=== PATIENT | female | born 1950 | race Caucasian/White ===

== ENCOUNTER → 2017-06-21 12:10 | Outpatient (CLI) | payer MEDICARE, SELFPAY ==
[2017-06-21 14:44] LABS: AST(SGOT) 26 U/L (15-37); Alanine Aminotransfer ALT/SGPT 27 U/L (13-56); Albumin, Serum 3.9 g/dL (3.2-5.0); Alkaline Phosphatase 65 U/L (45-117); Cholesterol 181 mg/dL (200); Globulin 2.7 g/dL (2.2-4.2); Glucose 92 mg/dL (74-106); High Density Lipoprotein 83 mg/dL; Protein, Total 6.6 g/dL (6.4-8.2); Thyroid Stim Hormone (TSH) 0.99 uIU/mL (0.358-3.74); Triglycerides 84 mg/dL; Very Low Density Lipoprotein 17 mg/dL (5-40)
== END ==
PROVIDERS: Family Provider Family Medicine; PCP Family Medicine; Visit Provider Family Medicine
DX: E03.9 Hypothyroidism, unspecified (principal); E78.5 Hyperlipidemia, unspecified
CPT/HCPCS: 36415; 80061; 80076; 82947; 84443

== ENCOUNTER → 2017-11-25 11:23 | Outpatient (CLI) | payer MEDICARE, SELFPAY ==
[2017-11-25 12:38] LABS: Vitamin B12 1343 pg/mL (211-911); Vitamin D,25 Hydroxy 26.5 ng/mL (29.95-100.01)
[2017-11-25 12:51] LABS: Free T3 2.1 pg/mL (2.18-3.98); T4 Free Direct 1.34 ng/dL (0.76-1.46); Thyroid Stim Hormone (TSH) 1.92 uIU/mL (0.358-3.74)
[2017-11-26 09:49] LABS: Cancer Antigen 125 17.5 U/mL (0.0-38.1)
== END ==
PROVIDERS: Visit Provider Obstetrics & Gynecology
DX: E03.9 Hypothyroidism, unspecified (principal)
CPT/HCPCS: 36415; 82306; 82607; 84439; 84443; 84481; 86304

== ENCOUNTER → 2018-01-19 17:34 | Outpatient (CLI) | payer MEDICARE, SELFPAY ==
--- NOTE | 2018-01-17 | EMB_PTH ---
PATIENT: CHRISTY GASPAR LOC: [facility] U#:[id number] AGE/SX: 74/F ROOM: RE01/19/[address]: Dr. Radha Wiley MD : 1950 BED: DIS: SPEC #: [id number] RECD: 01/17/18 16:43 STATUS: SILVANA NORA #: [id number] CHAD: 01/17/18 00:[address]: Radha Ward DEPT: SURGICAL PATHOLOGY RECD BY: Joseph Freitas ENTERED: 01/20/18 14:41 SP TYPE: ENDOM BX/C ABHAY DR: Dr. 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 Negative for hyperplasia or malignancy. SJ:vamshi 01/21/18 COMMENT Clinical correlation and appropriate followup are necessary. MICROSCOPIC DESCRIPTION Slides are reviewed. GROSS DESCRIPTION Received is one container labeled with the patient name and designated EM biopsy. The specimen consists of multiple fragments of lowry mucoid tissue that in aggregate measure 3 x 2.5 x 0.3 cm. The specimen is totally submitted in one cassette. / SJ:vamshi 01/20/18 TC:5 CPT: 72797
== END ==
PROVIDERS: Family Provider Family Medicine; PCP Family Medicine; Referring Provider Obstetrics & Gynecology; Visit Provider Obstetrics & Gynecology
DX: Z80.41 Family history of malignant neoplasm of ovary (principal)
CPT/HCPCS: 88305

== ENCOUNTER → 2018-06-11 11:59 | Outpatient (CLI) | payer MEDICARE, SELFPAY | PROVIDERS: Family Provider Family Medicine; PCP Family Medicine; Referring Provider Family Medicine; Visit Provider Family Medicine | DX: R19.7 Diarrhea, unspecified (principal) | CPT/HCPCS: 87493; 87506 ==

== ENCOUNTER → 2019-03-25 10:42 | Outpatient (CLI) | payer MEDICARE, SELFPAY ==
[2019-03-25 13:02] LABS: AST(SGOT) 22 U/L (15-37); Alanine Aminotransfer ALT/SGPT 23 U/L (13-56); Albumin, Serum 3.4 g/dL (3.2-5.0); Alkaline Phosphatase 75 U/L (45-117); Bilirubin, Direct 0.14 mg/dL (0.00-0.30); Cholesterol 184 mg/dL (200); Free T3 2.3 pg/mL (2.18-3.98); Globulin 3.1 g/dL (2.2-4.2); High Density Lipoprotein 76 mg/dL; Protein, Total 6.5 g/dL (6.4-8.2); T4 Total, Thyroxin 11.2 ug/dL (4.8-13.9); Thyroid Stim Hormone (TSH) 0.92 uIU/mL (0.358-3.74); Triglycerides 158 mg/dL; Very Low Density Lipoprotein 32 mg/dL (5-40)
== END ==
PROVIDERS: Family Provider Family Medicine; PCP Family Medicine; Referring Provider Family Medicine; Visit Provider Family Medicine
DX: E03.9 Hypothyroidism, unspecified (principal); E78.5 Hyperlipidemia, unspecified
CPT/HCPCS: 36415; 80061; 80076; 84436; 84443; 84481

== ENCOUNTER → 2019-09-23 11:05 | Outpatient (CLI) | payer MEDICARE, SELFPAY ==
[2019-09-23 13:34] LABS: BUN 16 mg/dL (7-18); Creatinine, Serum 0.64 mg/dL (0.55-1.02); EST Glomerular Filtration Rate 97 mL/min (>60); Glucose 95 mg/dL (74-106)
[2019-09-23 13:35] LABS: ALB/GLOB Ratio 1.2 RATIO (0.9-2.4); AST(SGOT) 24 U/L (15-37); Alanine Aminotransfer ALT/SGPT 27 U/L (13-56); Albumin, Serum 3.9 g/dL (3.2-5.0); Alkaline Phosphatase 72 U/L (45-117); Anion Gap 7 (5-15); BUN/Creat Ratio 24.9 RATIO (10-20); Calcium,Total 8.6 mg/dL (8.5-10.1); Chloride 103 mmol/L (98-107); Cholesterol 223 mg/dL (200); Est Glom Filt Rate - Afr Amer 118 mL/min (>60); Free T3 2.5 pg/mL (2.18-3.98); Globulin 3.2 g/dL (2.2-4.2); High Density Lipoprotein 93 mg/dL; Potassium 4.2 mmol/L (3.5-5.1); Protein, Total 7.1 g/dL (6.4-8.2); Sodium Level 138 mmol/L (136-145); T4 Total, Thyroxin 9.8 ug/dL (4.8-13.9); Thyroid Stim Hormone (TSH) 2.13 uIU/mL (0.358-3.74); Triglycerides 103 mg/dL; Very Low Density Lipoprotein 21 mg/dL (5-40)
== END ==
PROVIDERS: PCP Family Medicine; Visit Provider Family Medicine
DX: E78.5 Hyperlipidemia, unspecified (principal); E03.9 Hypothyroidism, unspecified
CPT/HCPCS: 36415; 80053; 80061; 84436; 84443; 84481

== ENCOUNTER → 2020-03-23 11:28 | Outpatient (CLI) | payer MEDICARE, SELFPAY ==
[2020-03-23 15:05] LABS: ALB/GLOB Ratio 1.2 RATIO (0.9-2.4); AST(SGOT) 30 U/L (15-37); Alanine Aminotransfer ALT/SGPT 35 U/L (13-56); Albumin, Serum 3.8 g/dL (3.2-5.0); Alkaline Phosphatase 77 U/L (45-117); Anion Gap 5 (5-15); BUN 17 mg/dL (7-18); Calcium,Total 8.6 mg/dL (8.5-10.1); Chloride 104 mmol/L (98-107); Cholesterol 195 mg/dL (200); Creatinine, Serum 0.74 mg/dL (0.55-1.02); EST Glomerular Filtration Rate 83 mL/min (>60); Est Glom Filt Rate - Afr Amer 100 mL/min (>60); Free T3 2.3 pg/mL (2.18-3.98); Globulin 3.1 g/dL (2.2-4.2); Glucose 76 mg/dL (74-106); High Density Lipoprotein 86 mg/dL; Protein, Total 6.9 g/dL (6.4-8.2); Sodium Level 138 mmol/L (136-145); T4 Total, Thyroxin 8.1 ug/dL (4.8-13.9); Thyroid Stim Hormone (TSH) 2.18 uIU/mL (0.358-3.74); Triglycerides 75 mg/dL; Very Low Density Lipoprotein 15 mg/dL (5-40)
== END ==
PROVIDERS: PCP Family Medicine; Referring Provider Family Medicine; Visit Provider Family Medicine
DX: E78.5 Hyperlipidemia, unspecified (principal); E03.9 Hypothyroidism, unspecified
CPT/HCPCS: 36415; 80053; 80061; 84436; 84443; 84481

== ENCOUNTER → 2020-10-28 11:12 | Outpatient (CLI) | payer MEDICARE, SELFPAY ==
[2020-10-28 12:55] LABS: Anion Gap 7 (5-15); BUN 16 mg/dL (7-18); BUN/Creat Ratio 30.2 RATIO (10-20); Calcium,Total 8.6 mg/dL (8.5-10.1); Chloride 99 mmol/L (98-107); Cholesterol 196 mg/dL (200); Creatinine, Serum 0.53 mg/dL (0.55-1.02); EST Glomerular Filtration Rate 121 mL/min (>60); Est Glom Filt Rate - Afr Amer 147 mL/min (>60); Free T3 2.2 pg/mL (2.18-3.98); Glucose 90 mg/dL (74-106); High Density Lipoprotein 93 mg/dL; Potassium 3.8 mmol/L (3.5-5.1); Sodium Level 135 mmol/L (136-145); T4 Free Direct 1.07 ng/dL (0.76-1.46); Thyroid Stim Hormone (TSH) 2.14 uIU/mL (0.358-3.74); Triglycerides 71 mg/dL; Very Low Density Lipoprotein 14 mg/dL (5-40)
== END ==
PROVIDERS: PCP Family Medicine; Visit Provider Family Medicine
DX: E03.9 Hypothyroidism, unspecified (principal); E78.5 Hyperlipidemia, unspecified
CPT/HCPCS: 36415; 80048; 80061; 84439; 84443; 84481

== ENCOUNTER 2021-05-01 11:10 | Outpatient (CLI) | payer MEDICARE, SELFPAY ==
[2021-05-01 13:03] LABS: ALB/GLOB Ratio 1.2 RATIO (0.9-2.4); AST(SGOT) 28 U/L (15-37); Alanine Aminotransfer ALT/SGPT 31 U/L (13-56); Albumin, Serum 3.8 g/dL (3.2-5.0); Alkaline Phosphatase 68 U/L (45-117); Anion Gap 8 (5-15); BUN 17 mg/dL (7-18); BUN/Creat Ratio 32.3 RATIO (10-20); Calcium,Total 8.6 mg/dL (8.5-10.1); Chloride 99 mmol/L (98-107); Cholesterol 203 mg/dL (200); Creatinine, Serum 0.53 mg/dL (0.55-1.02); EST Glomerular Filtration Rate 122 mL/min (>60); Est Glom Filt Rate - Afr Amer 147 mL/min (>60); Globulin 3.1 g/dL (2.2-4.2); Glucose 91 mg/dL (74-106); High Density Lipoprotein 99 mg/dL; Potassium 4.1 mmol/L (3.5-5.1); Protein, Total 6.9 g/dL (6.4-8.2); Sodium Level 135 mmol/L (136-145); T4 Free Direct 1.07 ng/dL (0.76-1.46); Thyroid Stim Hormone (TSH) 1.84 uIU/mL (0.358-3.74); Triglycerides 87 mg/dL; Very Low Density Lipoprotein 17 mg/dL (5-40)
== END 2021-05-01 23:59 | disposition home or self-care (01) ==
LOC: MFPLAB 11:14
PROVIDERS: PCP Family Medicine; Visit Provider Family Medicine
DX: E78.5 Hyperlipidemia, unspecified (principal); E03.9 Hypothyroidism, unspecified
CPT/HCPCS: 36415; 80053; 80061; 84439; 84443; 84481

== ENCOUNTER → 2021-07-19 | Outpatient (CLI) | payer MEDICARE, SELFPAY ==
--- NOTE | 2021-07-19 14:00 | RAD_ITS ---
STUDY: X-RAY - PELVIS AND BILATERAL HIP REASON FOR EXAM: Female, 70 years old. PAIN IN LEFT HIP TECHNIQUE: XR Hips Bilateral with Pelvis when performed; 2 Views COMPARISON: None. FINDINGS: There is a non-specific bowel gas pattern. Normal visualized soft tissue structures. There are degenerative changes of the lumbar spine. Normal bilateral iliac wings, sacroiliac joints and visualized sacrum. Normal bilateral superior and inferior pubic rami. Normal pubic symphysis. Normal bilateral ischial tuberosities. Normal visualized femoral head. Normal acetabulum. Normal hip joint. RAD/Hips B/L min 2 views w/ Pelvis IMPRESSION: No acute findings. Electronically Signed: Darren Purdy MD at 18:32 EDT ,
[2021-07-19 14:02] LABS: Lyme Ab Screen Interpretation REF LAB
[2021-07-23 08:18] LABS: Lyme Scn Total Ab w/Rflx Negative (Negative)
== END | disposition home or self-care (01) ==
LOC: MTLAB 13:58
PROVIDERS: PCP Family Medicine; Referring Provider Family Medicine; Visit Provider Family Medicine
DX: M25.552 Pain in left hip (principal); W57.XXXA Bitten or stung by nonvenomous insect and other nonvenomous arthropods, initial encounter
CPT/HCPCS: 36415; 73521; 86618

== ENCOUNTER → 2022-08-17 | Outpatient (CLI) | payer MEDICARE, SELFPAY ==
--- NOTE | 2022-08-17 11:46 | RAD_ITS ---
STUDY: X-RAY - PELVIS AND LEFT HIP REASON FOR EXAM: Female, 71 years old. HIP PAIN TECHNIQUE: 3 views of the pelvis and hip. COMPARISON: 07/19/2021 FINDINGS: There is a non-specific bowel gas pattern. Normal visualized soft tissue structures. Normal bilateral iliac wings, sacroiliac joints and visualized sacrum. Normal bilateral superior and inferior pubic rami. Normal pubic symphysis. Normal bilateral ischial tuberosities. There are osteoarthritic changes of the femoral head with marginal osteophyte formation. Normal acetabulum. There is mild articular joint space narrowing of the hip. RAD/HIP, UNI W/ Pelvis 2-3 Views IMPRESSION: Mild arthrosis. Electronically Signed: Tony Connelly MD at 8:33 EDT ,
[2022-08-17 13:28] LABS: ALB/GLOB Ratio 1.2 RATIO (0.9-2.4); AST(SGOT) 28 U/L (15-37); Alanine Aminotransfer ALT/SGPT 30 U/L (13-56); Albumin, Serum 3.9 g/dL (3.2-5.0); Alkaline Phosphatase 70 U/L (45-117); Anion Gap 6 (5-15); BUN 16 mg/dL (7-18); BUN/Creat Ratio 25.2 RATIO (10-20); Calcium,Total 8.8 mg/dL (8.5-10.1); Chloride 101 mmol/L (98-107); Cholesterol 193 mg/dL (200); Creatinine, Serum 0.64 mg/dL (0.55-1.02); EST Glomerular Filtration Rate 98 mL/min (>60); Est Glom Filt Rate - Afr Amer 118 mL/min (>60); Free T3 2.2 pg/mL (2.18-3.98); Globulin 3.3 g/dL (2.2-4.2); Glucose 92 mg/dL (74-106); High Density Lipoprotein 99 mg/dL; Protein, Total 7.2 g/dL (6.4-8.2); Sodium Level 135 mmol/L (136-145); T4 Free Direct 1.02 ng/dL (0.76-1.46); Thyroid Stim Hormone (TSH) 2.41 uIU/mL (0.358-3.74); Triglycerides 88 mg/dL; Very Low Density Lipoprotein 18 mg/dL (5-40)
== END | disposition home or self-care (01) ==
PROVIDERS: PCP Family Medicine; Referring Provider Family Medicine; Visit Provider Family Medicine
DX: E78.5 Hyperlipidemia, unspecified (principal); E03.9 Hypothyroidism, unspecified
CPT/HCPCS: 36415; 73502; 80053; 80061; 84439; 84443; 84481

== ENCOUNTER → 2022-09-25 | Outpatient (CLI) | payer MEDICARE, SELFPAY ==
--- NOTE | 2022-09-25 14:36 | BI_ITS ---
MAMMOGRAPHY - BILATERAL DIAGNOSTIC REASON FOR EXAM: Female, 72 years old. Bilateral breast tenderness x5-6 months PERTINENT HISTORY: No family history, but no mammogram since 2011 TECHNIQUE: Digital examination. Mediolateral oblique (MLO) and craniocaudad (CC) views of both breasts were obtained, along with 3-D tomosynthesis. CAD: CAD was performed on this study. COMPARISON: 2011 FINDINGS: Breast Composition: There are scattered areas of fibroglandular density. There is an area in each breast noted by CAD on the 3-D tomograms which show poorly defined spiculated borders and particular in the right breast some evidence of retraction. Further evaluation of both of these areas with ultrasound is recommended. The upper outer quadrant of the right breast and inferior medial aspect of the left breast. BI/DIAG MAMM W/CAD, BILAT IMPRESSION: Further ultrasonographic evaluation recommended, as described above. Recall Side: Both Breasts ASSESSMENT CATEGORY: BIRADS Category 0: Incomplete. Need additional imaging evaluation. A letter regarding these results will be sent to the patient by the facility within 30 days. FOLLOW UP RECOMMENDATION: Ultrasound Recommended. (I) Approximately 10% of breast cancers are not detected by mammography. A normal mammogram should not delay biopsy of a clinically suspicious abnormality. Electronically Signed: Denny Liu MD at 15:14 EDT ,
--- NOTE | 2022-09-25 14:36 | US_ITS ---
STUDY: ULTRASOUND BREAST - RIGHT REASON FOR EXAM: Female, 72 years old. Abnormal mammogram TECHNIQUE: Axial and longitudinal images of the RIGHT breast were performed with a high resolution ultrasound transducer. # OF IMAGES: 55 COMPARISON: Mammogram from earlier today FINDINGS: RIGHT Breast: Focused upper outer quadrant ultrasound of the right breast was performed. On the 3-D tomograms, there was an abnormal area noted by CAD. Sonographic evaluation of this area, at 9:00, 3 to 4 cm from the nipple shows a poorly defined hypoechoic partially shadowing nodule. This corresponds to the abnormality noted on the mammogram and biopsy is recommended for further evaluation IMPRESSION: There is a suspicious poorly defined iso to hypoechoic nodule in the 9:00 position 3 to 4 cm from the nipple that needs further evaluation with biopsy. ASSESSMENT CATEGORY: BIRADS Category 4: Suspicious - Biopsy Should Be Considered. A letter regarding these results will be sent to the patient by the facility within 30 days. Electronically Signed: Denny Liu MD at 17:43 EDT , STUDY: ULTRASOUND BREAST - LEFT REASON FOR EXAM: Female, 72 years old. Abnormal mammogram TECHNIQUE: Axial and longitudinal images of the LEFT breast were performed with a high resolution ultrasound transducer. # OF IMAGES: 55 COMPARISON: Mammogram from earlier today FINDINGS: LEFT Breast: Focused ultrasound in the lower inner quadrant of the left breast shows only normal dense fibroglandular tissue. There is no suspicious shadowing solid lesion, architectural distortion, or clustered shadowing calcifications. US/Breast Limited Unilateral IMPRESSION: No suspicious sonographic findings. ASSESSMENT CATEGORY: BIRADS Category 2: Benign. A letter regarding these results will be sent to the patient by the facility within 30 days. Electronically Signed: Denny Liu MD at 17:44 EDT ,
== END | disposition home or self-care (01) ==
LOC: OPBI 14:34
PROVIDERS: PCP Family Medicine; Referring Provider Obstetrics & Gynecology; Visit Provider Obstetrics & Gynecology
DX: N64.4 Mastodynia (principal)
CPT/HCPCS: 76642; 77062; 77066; G0279

== ENCOUNTER → 2022-09-28 | Outpatient (CLI) | payer MEDICARE, SELFPAY ==
--- NOTE | 2022-09-28 | IMM_PTH ---
PATIENT: CHRISTY GASPAR LOC: [facility] U#:[id number] AGE/SX: 72/F ROOM: RE09/28/[address]: Dr. Alannah Doe MD : 1950 BED: DIS: 09/28/2022 SPEC #: [id number] RECD: 10/01/22 14:10 STATUS: SILVANA REQ #: [id number] CHAD: 09/28/22 00:[address]: Alannah Doe DEPT: IMMUNOHISTOCHEMISTRY RECD BY: Anne Olguin ENTERED: 10/01/22 14:12 SP TYPE: IMMUNO OTHR DR: Dr. Dg Calixto MD Tissues: Right breast, NOS Procedures: CALPONIN-1 (add) CK5-6 (add) CK8 (add) IBANEZ-2 (add) E-CAD (add) HER2 MANJEET (add) KI-67 (add) P53 (add) MS (add) IN SITU HYBRIDIZATION P40 (add) ER (initial) PHYSICIAN & INSTITUTION [address] [address] SPECIMEN INFORMATION: Tissue Source: Right breast Clinical Info: Right breast nodule Specimen Number: [id number] CPT code: 25559, 82193 x7, 22448 x3, 33240 x2 METHODOLOGY: Deparaffinized sections of prefer/formalin-fixed tissue or PAP/DQ stained slides are incubated with monoclonal/polyclonal antibodies/oligonucleotide probes. Localization is made via biotin free immunoperoxidase method. Appropriate controls are performed and reacted as expected. Results on target cell population are indicated in the following table: RESULTS: ANTIBODY / CLONE RESULT P53 (DO-7) negative, null pattern Ki-67 (30-9) positive CK8 (24vkbbW74) positive CK5-6 (D5 & 1684) negative Calponin-1 (OD989Z) negative P40 (BC28) negative E-Cad (ECH-6) positive IBANEZ-2 (SP21) positive MORPHOMETRIC ANALYSIS ER (clone 6F11) >95%, strong intensity MS (clone 16/1E2) 65%, weak to moderate intensity Her-2Neu (clone CB11) 1-2+ The prognostic test for HER2 is performed on formalin-fixed paraffin embedded tissue. A 3+ (positive) staining pattern is defined as intense, homogeneous, complete, circumferential membranous staining in >10% of contiguous tumor cells. A similar weak (2+) staining pattern is interpreted as equivocal. JUAN follow-up testing is recommended for all equivocal cases. Positivity/negativity for ER/MS is reported if > or < 1% of the tumor cells are immuno- reactive, respectively. The ASCO/CAP criteria is used for scoring. Reference: Journal of Clinical Oncology, 2013; 31:0242-1712 & 2010; 16:6785-0558. Duration of fixation: 81 Hrs; Sample Adequate: Yes. These assays have not been validated on decalcified tissues. Results should be interpreted with caution given the likelihood of false negativity on decalcified specimens. These tests were developed and their performance characteristics determined by [facility]. They may not have been cleared or approved by the U.S. Food and Drug Administration. The FDA has determined that such clearance or approval is not necessary. The above immunohistochemical/dualISH markers are ordered and reviewed by the Pathologist. INTERPRETATION: Right breast nodule, biopsy: Invasive ductal carcinoma. Positive for estrogen receptors (favorable prognostic indicator). Positive for progesterone receptors (favorable prognostic indicator). Equivocal for overexpression of WEK5ktv. AM:rom 10/02/2022 ADDENDUM ADDENDUM ADDENDUM ADDENDUM ADDENDUM ADDENDUM ADDENDUM ADDENDUM ADDENDUM ADDENDUM ADDENDUM ADDENDUM ADDENDUM ADDENDUM ADDENDUM ADDENDUM ADDENDUM ADDENDUM ADDENDUM ADDENDUM ADDENDUM ADDENDUM 10/05/2022 12:55 ADDENDUM 10/05/2022 12:55 ADDENDUM 10/05/2022 12:55 ADDENDUM 10/05/2022 12:55 ADDENDUM 10/05/2022 12:55 IN SITU HYBRIDIZATION (JUAN) FOR HER2 Interpretation: Not Amplified HER2 : CEP-17 Ratio: 1.13 Average HER2 Signal: 2.1 Average CEP-17 Signal: 1.85 Number of Tumor Cells Scanned: 50 Interpretative Information: The INFORM HER2 Dual JUAN DNA Probe Cocktail assay is performed on formalin-fixed paraffin embedded tissue and determines HER2 gene status by detecting HER2 copies via silver in situ hybridization (SISH) and Chromosome 17 copies via chromogenic red in situ hybridization on tumor cells. A minimum of 20 cells representing > 10% of contiguous and homogeneous invasive tumor cells were analyzed. HER2 gene status is classified as Non-amplified (HER2/Chr17 ratio < 2.0) or Amplified (HER2/Chr17 ratio greater than or equal to 2.0). If the resulting HER2/Chr17 ratio falls within 1.8 - 2.2 (Borderline), retesting by FISH is recommended. Reference: Carlin AC, Jose IRVIN, Darinel DG, et al: Recommendations for Human Epidermal Growth Factor Receptor 2 Testing in Breast Cancer: [place] Society of Clinical Oncology / College of [place] [employer] Clinical Practice Guideline Update. J Clin Oncol 31:6412-2596, 2013. AM:rom 10/05/2022
--- NOTE | 2022-09-28 09:50 | BRBX_PTH ---
PATIENT: CHRISTY GASPAR LOC: [facility] U#:[id number] AGE/SX: 72/F ROOM: RE09/28/[address]: Dr. Alannah Doe MD : 1950 BED: DIS: 09/28/2022 SPEC #: [id number] RECD: 09/28/22 11:20 STATUS: SILVANA NORA #: [id number] CHAD: 09/28/22 09:[address]: Alannah Doe DEPT: SURGICAL PATHOLOGY RECD BY: Heena Levy ENTERED: 09/28/22 11:33 SP TYPE: BREAST BX OTHR DR: Dr. Dg Calixto MD Tissues: Right breast, NOS Procedures: Surgery Specimen Level IV HEADER OPERATION: Biopsy of right breast nodule PRE-OP DIAGNOSIS: Right breast nodule TISSUE SUBMITTED: Right breast nodule tissue, 3-4 cm from nipple MICROSCOPIC DIAGNOSIS Right breast nodule, needle core biopsy: Invasive ductal carcinoma with the following characteristics: Nuclear grade - 1/3 Maximal length - 8 millimeters Other findings - atypical intraductal hyperplasia. Microcalcifications with carcinoma. See comment. AM:rom 10/01/2022 COMMENT Immunohistochemistry ([id number]) supports the above diagnosis. Case has been reviewed in consultation with Dr. Phipps who concurs with the above diagnosis. IDC:SJ MICROSCOPIC DESCRIPTION Slides are reviewed. GROSS DESCRIPTION Received in fixative is one container labeled with the patient's name and designated right breast nodule. The specimen consists of multiple irregular and elongated fragments of lowry tissue that in aggregate measure 1.0 x 0.3 x 0.1 cm. The specimen is totally submitted in one cassette. / AM:rom 09/28/2022 TC:0 CPT: 70038
== END | disposition home or self-care (01) ==
LOC: LABSPEC 11:25
PROVIDERS: PCP Family Medicine; Referring Provider Surgery; Visit Provider Surgery
DX: N63.10 Unspecified lump in the right breast, unspecified quadrant (principal)
CPT/HCPCS: 88305; 88341; 88342; 88368

== ENCOUNTER → 2022-10-02 | Outpatient (CLI) | payer MEDICARE, SELFPAY ==
--- NOTE | 2022-10-02 10:40 | BD_ITS ---
STUDY: DUAL ENERGY X-RAY ABSORPTIOMETRY / DXA REASON FOR EXAM: Female, 72 years old. M810 TECHNIQUE: Bone Mineral Density (BMD) measurements of lumbar spine and bilateral hips were obtained. COMPARISON: None. FINDINGS: Lumbar Spine (L1-L4): g/cm2 (0.980) / T-score (-0.5) / Z-score (1.7) Findings are suggestive of normal bone density with a low fracture risk. Left Femur Total: g/cm2 (0.823) / T-score (-1.0) / Z-score (0.6) Left Femoral Neck: g/cm2 (0.899) / T-score (0.4) / Z-score (2.4) Right Femur Total: g/cm2 (0.816) / T-score (-1.0) / Z-score (0.6) Right Femoral Neck: g/cm2 (0.711) / T-score (-1.2) / Z-score (0.7) BD/Dexa Bone Density Study IMPRESSION: The patient is considered osteopenic as outlined below according to World [employer] Organization (WHO) criteria with a low fracture risk. Reference Information: The T-score is the number of standard deviations above or below the standard which is normal for young adults at their peak bone mineral density. The World Health Organization (WHO) interprets the T-scores as follows: Above -1 Normal bone density Between -1 and -2.5 Osteopenia Equal to / or below -2.5 Osteoporosis As a practical clinical guideline, osteopenia may be graded as follows: Mild -1 through -1.5 Moderate -1.6 through -2.0 Severe -2.1 through -2.4 The Z-score is the number of standard deviations above or below age-matched controls. A Z-score of less than -1.5 would be considered abnormal. References: 1. NIH Osteoporosis and Related Bone Diseases www osteo.org 2. International Society for Clinical Densitometry www iscd.org 3. National Osteoporosis Foundation www nof.org Electronically Signed: Roney Méndez MD at 14:04 EDT ,
== END | disposition home or self-care (01) ==
LOC: OPBD 10:30
PROVIDERS: PCP Family Medicine; Referring Provider Obstetrics & Gynecology; Visit Provider Obstetrics & Gynecology
DX: Z13.820 Encounter for screening for osteoporosis (principal); M81.0 Age-related osteoporosis without current pathological fracture
CPT/HCPCS: 77080

== ENCOUNTER 2022-11-15 16:50 | Observation (INO) | payer MEDICARE, SELFPAY ==
[2022-11-15] VITALS (12 sets, daily range): BP systolic 114–139; BP diastolic 50–74; PULSE 58–84; RESP 14–18; TEMP 36.3–37; O2SAT 92–100; BMI 23.8; BMI 25.0
--- NOTE | 2022-11-15 | AXNB_PTH ---
PATIENT: CHRISTY GASPAR LOC: [facility] U#:[id number] AGE/SX: 72/F ROOM: [facility] [place]/15/[address]: Dr. Alannah Doe MD : 1950 BED: 1 DIS: 11/16/2022 SPEC #: [id number] RECD: 11/15/22 14:52 STATUS: SILVANA NORA #: [id number] CHAD: 11/15/22 00:[address]: Alannah Doe DEPT: SURGICAL PATHOLOGY RECD BY: Anne Olguin ENTERED: 11/15/22 15:50 SP TYPE: AX NODE BX OTHR DR: Dr. Dg Calixto MD Tissues: A - Axillary lymph node, NOS B - Axillary lymph node, NOS C - Axillary lymph node, NOS D - Right breast, NOS E - Right breast, NOS Procedures: Frozen Section (charge) Frozen Section Add'l (chg) Surgery Specimen Level IV Surgery Specimen Level V HEADER OPERATION: Ultrasound-guided wire localization, lumpectomy right breast PRE-OP DIAGNOSIS: Invasive ductal carcinoma of right breast TISSUE SUBMITTED: A - Right sentinel lymph node, FS, B - Right sentinel lymph node, FS, C - Right sentinel lymph node, FS, D - Right breast lumpectomy, E - Right axillary content FROZEN SECTION DIAGNOSIS A. Right sentinel lymph node, biopsy: A piece of adipose tissue. Lymph node tissue is not present. B. Right sentinel lymph node, biopsy: A piece of adipose tissue. Lymph node tissue is not present. C. Right sentinel lymph node, biopsy: One lymph node, negative for metastatic carcinoma. PEDRO:rom 11/15/2022 MICROSCOPIC DIAGNOSIS A. Right sentinel lymph node, biopsy: A piece of benign fibroadipose tissue. Lymph node tissue is not identified. B. Right sentinel lymph node, biopsy: A piece of benign fibroadipose tissue. Lymph node tissue is not identified. C. Right sentinel lymph node, biopsy: One lymph node, negative for metastatic carcinoma. See comment. D. Right breast lumpectomy, needle localization biopsy: Invasive ductal carcinoma. Ductal carcinoma in situ. See cancer summary in the comment section. E. Right axillary contents: Three out of 20 lymph nodes positive for macrometastatic carcinoma. See comment. PEDRO:rom 11/20/2022 COMMENT C. The lymph node is negative for metastatic carcinoma on multiple H & E levels and immunohisto-chemical stains for cytokeratins ([id number]). D. BREAST CANCER SUMMARY Procedure - excision (lumpectomy) with needle localization Specimen laterality - right Tumor site - not specified Tumor size - 1.5 x 1.0 x 0.7 cm Histologic type - invasive ductal carcinoma, not otherwise specified. Histologic grade (Neri grade): Glandular/tubular differentiation score - 1 Nuclear pleomorphism score - 1 Mitotic count score - 1 Overall grade - grade 1 (score of 3) Tumor focality - single focus of invasive carcinoma. Ductal carcinoma in situ - present Positive for extensive intraductal component (EIC). Size (extent) of DCIS - DCIS comprise about 25% of the total tumor volume. Number of blocks with DCIS - 5 Number of blocks examined - 11 Architectural pattern - cribriform Nuclear grade - grade 1 Necrosis - present, focal (single cell necrosis) Lobular carcinoma in situ - not identified Tumor extension: Skin - skin is not present. Nipple - not applicable Skeletal muscle - skeletal muscle is not present. Margins: Invasive carcinoma and ductal carcinoma in situ are 0.4 cm away from the closest posterior and inferior margins. Regional lymph nodes: Total number of lymph nodes examined - 21 Number of sentinel lymph nodes examined - 1 Number of lymph nodes with macrometastases - 3 Number of lymph nodes with micrometastases and isolated tumor cells - 0 Size of largest metastatic deposit - 0.7 cm Extranodal extension - not identified. Treatment effect - no known presurgical therapy. Lymphvascular invasion - not identified Dermal lymphvascular invasion - not identified Perineural invasion - present Distant metastasis - not applicable Additional Pathologic Findings - fibrocystic changes and intraductal hyperplasia without atypia. Ancillary Studies: Previously performed on same tumor ([id number] / [id number]) ER: positive (>95%, strong intensity) HI: positive (65%, weak to moderate intensity) Bxx7cie: equivocal (1-2+) Whr4kzg by JUAN: negative/not amplified Microcalcifications - present in DCIS, invasive carcinoma and non-neoplastic tissue. Clinical History - Please make reference to previous specimen ([id number]), right breast nodule, needle core biopsy with diagnosis of invasive ductal carcinoma. PATHOLOGIC STAGE: pT1c pN1a pMx The above summary is in compliance with [employer] [place] [employer] (CAP) Cancer Protocols Checklist and [place] Joint Committee on Cancer (AJCC), Staging Manual, 8th Ed. E. Immunohistochemistry ([id number]) supports the above diagnosis. Three lymph nodes show macrometastasis. Largest focus of metastasis measures 0.7 cm in greatest dimension. Extranodal extension is not identified. MICROSCOPIC DESCRIPTION Slides are reviewed. GROSS DESCRIPTION A - Received fresh for frozen section diagnosis labeled with the patient's name is a specimen designated sentinel lymph node. The specimen consists of a piece of adipose tissue measuring 1.0 x 0.7 x 0.2 cm. No lymph node tissue is identified. The entire specimen is submitted for frozen section diagnosis in one cassette. Sections are submitted after additional fixation. / : 11/16/2022 B - Received fresh for frozen section diagnosis labeled with the patient's name is a specimen designated sentinel lymph node right. The specimen consists of a piece of adipose tissue measuring 2.0 x 1.0 x 0.5 cm. No lymph node tissue is identified. The entire specimen is submitted for frozen section diagnosis in one cassette. Sections are submitted after additional fixation. / : 11/16/2022 C - Received fresh for frozen section diagnosis labeled with the patient's name is a specimen designated sentinel lymph node. The specimen consists of a piece of adipose tissue measuring 3.0 x 1.5 x 0.5 cm. The specimen is bisected and submitted entirely for frozen section diagnosis in two cassettes. Sections are submitted after additional fixation. / : 11/16/2022 D - Received fresh for intraoperative consultation labeled with the patient's name is a specimen designated lumpectomy. The specimen consists of a piece of fibroadipose tissue measuring 3.5 x 3.5 x 2.0 cm. The specimen is oriented by suture as follows: short stitch - superior, long stitch - lateral. The specimen is inked as follows: anterior - yellow, posterior - black, superior - blue, inferior - green, medial - red and lateral - orange. Serial sections reveal a lowry, indurated mass measuring 1.5 x 1.0 x 0.7 cm. This mass is 0.5 cm away from the closest posterior and inferior margins. This information is conveyed to the surgeon intraoperatively. Sections of the rest of the specimen reveal lowry-yellow adipose cut surfaces mixed with lowry-white fibrous area. The entire specimen is submitted in 11 cassettes as follows: 1 - perpendicular lateral margin, enface, 2 - perpendicular medial margin, enface, 3 - perpendicular superior and anterior margins, 4-8 - tumor with closest inferior and posterior margins, 9-11 - rest of the specimen. Sections are submitted after additional fixation. / PEDRO:rom 11/16/2022 E - Received in fixative is one container labeled with the patient's name and designated right axillary contents. The specimen consists of three pieces of adipose tissue measuring in aggregate 6.5 x 6.0 x 2.0 cm. Multiple nodules consistent with lymph nodes are noted. The largest lymph node measures 1.0 cm in greatest dimension. The lymph nodes are submitted in entirety. Dinking Machine Operator sections are submitted in four cassettes as follows: 1- multiple lymph nodes, 2 - multiple lymph nodes, 3 - multiple lymph nodes, 4 - possible lymph nodes. Sections are submitted after additional fixation. / PEDRO:rom 11/16/2022 TC:0 CPT: 75444 x3, 58776 x2, 70218 x3, 23352, 85477
--- NOTE | 2022-11-15 | IMM_PTH ---
PATIENT: CHRISTY GASPAR LOC: [facility] U#:[id number] AGE/SX: 72/F [place] [facility] [place]: Dr. Alannah Doe MD : 1950 BED: 1 DIS: 11/16/2022 SPEC #: [id number] RECD: 11/20/22 13:24 STATUS: ISLVANA RERose #: [id number] CHAD: 11/15/22 00:[address]: Alannah Doe DEPT: IMMUNOHISTOCHEMISTRY RECD BY: Anne Olguin ENTERED: 11/20/22 13:26 SP TYPE: IMMUNO OTHR DR: Dr. Dg Calixto MD Tissues: C - Axillary lymph node, NOS E - Axillary lymph node, NOS Procedures: CK7 (add) Pankeratin (initial) Pankeratin (add) PHYSICIAN & INSTITUTION [place] [id number] SPECIMEN INFORMATION: Tissue Source: C - Right sentinel lymph node, E - Right axillary contents Clinical Info: Invasive ductal carcinoma of right breast Specimen Number: [id number] C1 & C2, E1-E4 CPT code: 61121 x2, 65930 x10 METHODOLOGY: Deparaffinized sections of prefer/formalin-fixed tissue or PAP/DQ stained slides are incubated with monoclonal/polyclonal antibodies/oligonucleotide probes. Localization is made via biotin free immunoperoxidase method. Appropriate controls are performed and reacted as expected. Results on target cell population are indicated in the following table: RESULTS: ANTIBODY / CLONE RESULT Block C1 AE1-3 (AE1/AE3/PCK26) negative CK7 (OV-TL12/30) negative Block C2 AE1-3 (AE1/AE3/PCK26) negative CK7 (OV-TL12/30) negative Block E1 AE1-3 (AE1/AE3/PCK26) negative CK7 (OV-TL12/30) negative Block E2 AE1-3 (AE1/AE3/PCK26) positive (one out of seven lymph nodes) CK7 (OV-TL12/30) positive (one out of seven lymph nodes) Block E3 AE1-3 (AE1/AE3/PCK26) positive (two out of five lymph nodes) CK7 (OV-TL12/30) positive (two out of five lymph nodes) Block E4 AE1-3 (AE1/AE3/PCK26) negative CK7 (OV-TL12/30) negative These tests were developed and their performance characteristics determined by [facility]. They may not have been cleared or approved by the U.S. Food and Drug Administration. The FDA has determined that such clearance or approval is not necessary. The above immunohistochemical/dualISH markers are ordered and reviewed by the Pathologist. INTERPRETATION: C. Right sentinel lymph node, biopsy: One lymph node, negative for metastatic carcinoma. E. Right axillary contents: Three out of 20 lymph nodes, positive for macrometastatic carcinoma. SJ:rom 11/21/2022
--- NOTE | 2022-11-15 08:33 | NM_ITS ---
PROCEDURE: NUCLEAR MEDICINE Injection Lincoln Node - RIGHT breast(s). REASON FOR EXAM: Female, 72 years old. Right breast cancer. TECHNIQUE: Lincoln node localization using radionuclide methods of the RIGHT breast(s) was performed following subcutaneous administration of 1.1 mCi of of sulfur colloid Tc-99m. COMPARISON STUDIES : NM - None. CR - Not available for review at this time. CT - Not available for review at this time. MR - Not available for review at this time. US - Not available for review at this time. FINDINGS: 1.1 mCi of technetium labeled sulfur colloid was injected subcutaneously and the periareolar region in 4 equal aliquots. NM/Lymph Node Injection Only IMPRESSION: 1.1 mCi of technetium labeled sulfur colloid was injected subcutaneously in the periareolar region in 4 equal aliquots. Electronically Signed: Roney Méndez MD at 9:31 EDT ,
[2022-11-15] MEDS: Lactated Ringers 1,000 ML 15 ML IV (09:06)
--- NOTE | 2022-11-15 11:00 | PCM.HP.STD ---
HPI - General General Date of Service: 11/15/22 HPI Narrative CHRISTY GASPAR, is a 72 F who presents for right lumpectomy and sentinel lymph node biopsy with nuclear tracer and blue dye due to right breast cancer. ER/PA positive HER2/sameer negative. [facility] Medical History (Updated 11/09/22 @ 15:18 by Gunjan Lomax) Alcohol use CPAP (continuous positive airway pressure) dependence Depression History of steroid therapy Hypercholesteremia Hypothyroid Non-smoker Restless legs Wears hearing aid Home Medications atorvastatin 20 mg tablet 20 mg PO DAILY 09/28/22 [History Last Taken Unknown] citalopram 20 mg tablet 20 mg PO DAILY 09/28/22 [History Last Taken Unknown] levothyroxine 88 mcg capsule 88 mcg PO DAILY 09/28/22 [History Last Taken 11/15/22] cholecalciferol (vitamin D3) 25 mcg (1,000 unit) tablet (Vitamin D3) 25 mcg PO DAILY 11/09/22 [History Last Taken Unknown] multivitamin (Daily Multi-Vitamin tablet) 1 tab PO DAILY 11/09/22 [History Last Taken Unknown] Allergy/AdvReac Type Severity Reaction Status Date / Time No Known Allergies Allergy Verified 11/15/22 08:46 Family History Mother Cancer Surgical History (Updated 11/09/22 @ 15:07 by Gunjan Lomax) History of dilation and curettage History of eye surgery History of tonsillectomy Social History Smoking Status: Never smoker alcohol intake: current substance use type: does not use Vital Signs Vital Signs Vital Signs: 11/15/22 08:48 11/15/22 08:53 Temperature 97.3 F L Temperature Source Temporal Pulse Rate 58 L Respiratory Rate 18 Respiratory Pattern Normal Blood Pressure 114/56 L Blood Pressure Mean 75 Blood Pressure Source Monitor Blood Pressure Position Semi-Fowlers Blood Pressure Location Right Arm Pulse Ox 100 Oxygen Delivery Method Room Air Weight Weight: 122 lb Body Mass Index (BMI) 23.8 Physical Exam Const oriented x3 and no apparent distress Chest Chest Narrative: Right breast biopsy site well-healed Resp normal respiratory effort Cardio regular rate GI soft to palpation and non-tender Extremity normal to inspection Results Radiology Impression [place] Node 11/15/22 08:33 IMPRESSION: 1.1 mCi of technetium labeled sulfur colloid was injected subcutaneously in the periareolar region in 4 equal aliquots. Electronically Signed: Roney Méndez MD at 9:31 EDT , Assessment & Plan Assessment/Plan (1) Invasive ductal carcinoma of breast: QUALIFIERS: Laterality: right Qualified Code(s): C50.911 - Malignant neoplasm of unspecified site of right female breast PLAN: Plan Plan for a right lumpectomy with sentinel lymph node biopsy with nuclear tracer and blue dye, possible axillary lymph node dissection. Risks benefits were previously discussed with patient and she had no further questions at this time. Alannah Doe M.D. Pager: [phone] [facility] [address] [place] [address], [facility], [address] [place] [address] Office: [phone]
[2022-11-15] MEDS: Cefazolin 2 GM in 0.9% Normal Saline 100 ML IV (14:02)
[2022-11-15] MEDS: Isosulfan Blue 1% 5 ML Vial (14:10)
[2022-11-15] MEDS: 0.9% Normal Saline (Pres. free 10 ML Vial (14:11)
--- NOTE | 2022-11-15 15:50 | BI_ITS ---
SURGICAL BREAST SPECIMEN RADIOGRAPH CLINICAL: Document presence of mass in biopsy specimen. FINDINGS: Specimen shows presence of mass. Electronically Signed: Roney Méndez MD at 8:19 EDT , BI/Breast Biopsy Specimen IMPRESSION: undefined
--- NOTE | 2022-11-15 16:42 | PCM.OPRPT ---
Report of Operation Date of Procedure: 11/15/22 Pre-Operative Diagnosis: Right breast cancer Post-Operative Diagnosis: Same Surgery/Procedure Performed:: Right lumpectomy ultrasound-guided needle localization, right axillary lymph node dissection Description of Surgical Findings:: No tracing of blue dye or nuclear tracer Surgeon: Alannah Doe project development manager: Michael Mace project development manager: Johanny Garcia Type of Anesthesia: General/Supplemental Anesthesiologist: Dariel Little Special Medications: Ancef 2 g IV x1 Specimen's removed: Right lumpectomy, right axillary contents Drains: 15 Indian round IVY in the axilla Estimated Blood Loss (mL): 20 cc Description of Procedure: Synoptic Portion: Element Response Options Operation performed with curative intent. Yes Resection was performed within the boundaries of the axillary vein, chest wall (serratus anterior), and latissimus dorsi. Yes Nerves identified and preserved during dissection (select all that apply) Long thoracic nerve; Thoracodorsal nerve; Branches of the intercostobrachial nerves Level III nodes were removed. No In AC the breast tissue was injected with TC-9 9 sulfur colloid. 120 minutes later the patient was taken to the operating room and general anesthesia was induced. 5 cc of Lymphazurin 1% blue dye was injected in the 4 quadrants periareolar along with 10 cc of normal saline. This was massaged gently for 5 minutes. The right breast and axilla were prepped and draped in usual sterile fashion. A timeout was completed verifying correct patient, procedure, site, positioning, special equipment prior to beginning procedure. Handheld gamma probe was used to identify the location of the hottest spot in the axilla. Prior to the incision, the counts were 0-8. However unable to identify any hot nodes or blue nodes but did have some blue lymphatics, but unable to trace to nodes. Thus converted for axillary lymph node dissection. The borders of the axillary vein, latissimus dorsi, serratus anterior are identified. The intercostobrachial, long thoracic and thoracodorsal nerves are also identified and protected throughout the dissection. All the nodes within these borders are removed and sent to pathology. Ultrasound was use for localization of the breast mass using the Kopan's needle. The wire was placed just inferiorly to the mass. A radial incision was planned in such a way as to minimize the amount of dissection to reach the mass. Flaps were raised in the location of the wire confirmed. The wire was delivered into the wound. 2 silk [id number] stay suture was placed around the wire and used for traction. Dissection was then taken down circumferentially, taking care to include the entire localization needle and wide margin of grossly normal tissue. The specimen and entire localizing wire were removed. The specimen was oriented and sent to radiology with the localization studies. Confirmation was received that the entire target lesion had been resected. The cavities were irrigated. Hemostasis was checked. The breast and axillary incisions were closed with interrupted sutures of 3-0 Vicryl and subcuticular sutures of 4-0 Monocryl. No attempt was made to close the space. Dermabond and supportive bra placed. The patient tolerated procedure well was taken to the postanesthesia care in stable condition Complications none
[2022-11-15] MEDS: Bupivacaine 0.25% 30 ML Vial (16:58)
[2022-11-15] MEDS: 0.9% Saline Lock 10 ML Syringe IV (22:54)
[2022-11-15] MEDS: Ketorolac 15 MG/ML Vial IV (22:55)
[2022-11-15] MEDS: 0.9% Normal Saline (1000mL) 1,000 ML 100 ML IV (22:59)
[2022-11-16] MEDS: Levothyroxine 88 MCG Tablet PO (05:39)
[2022-11-16 05:49] VITALS: BP 94/46; PULSE 66; RESP 16; TEMP 36.9; O2SAT 99
[2022-11-16 06:19] LABS: Absolute Lymphocyte Count 0.75 X10^3/uL (0.83-4.51); Absolute Neutrophil Count 7.9 X10^3/uL (2.0-7.7); Basophil# 0.03 X10^3/uL; Basophil% 0.3 % (0-1); Hematocrit 40.3 % (37-47); Hemoglobin 12.8 g/dL (12.0-15.0); Lymphocyte # 0.75 X10^3/ul (0.83-4.51); Mean Corp Hgb Conc 31.8 g/dL (32-36); Mean Corpuscular Hgb 31.4 pg (27.0-32.0); Mean Platelet Vol. 9.7 fl (6.2-12.0); Monocyte# 0.66 X10^3/uL; NRBC Flagged by Analyzer 0 % (0-5); Neutrophil # 7.92 X10^3/uL (2.7-7.7); Platelet Count 212 K/mm3 (150-450); RBC Distribution Width CV 12.3 % (11.6-14.6); RBC Distribution Width SD 44.9 fl (35.1-43.9); Red Blood Count 4.07 M/mm3 (4.2-5.4); White Blood Count 9.4 K/mm3 (4.4-11.0)
--- NOTE | 2022-11-16 07:34 | PN.SURG_ITS ---
Subjective Subjective Patient is some soreness at incisions but controlled with pain medication. IVY serosanguineous Objective Data Objective Data Vital Signs: Vital Signs Temp Pulse Resp BP Pulse Ox O2 Del Method O2 Flow Rate 98.4 F 66 16 94/46 L 99 Nasal Cannula 2 11/16/22 05:49 11/16/22 05:49 11/16/22 05:49 11/16/22 05:49 11/16/22 05:49 11/16/22 05:49 11/16/22 05:49 Oxygen Flow Rate (L/min) 2 Oxygen Delivery Method Nasal Cannula Weight: 127 lb 13.89 oz Body Mass Index (BMI) 25.0 Intake & Output: Intake and Output for Last 24 Hours 11/14/22 11/15/22 11/16/22 23:59 23:59 23:59 Intake Total 110 / 110 Output Total 60 / 60 333 / 333 Balance 50 / 50 -333 / -333 Lab / Micro Data 11/16/22 05:56 Labs: Laboratory Results - last 24 hr 11/16/22 05:56: WBC 9.4, RBC 4.07 L, Hgb 12.8, Hct 40.3, MCV 99.0, MCH 31.4, MCHC 31.8 L, RDW Std Deviation 44.9 H, RDW Coeff of Malick 12.3, Plt Count 212, MPV 9.7, Immature Gran % (Auto) 0.700, Neut % (Auto) 84.0 H, Lymph % (Auto) 8.0 L, [place] % (Auto) 7.0, Eos % (Auto) 0.0, Baso % (Auto) 0.3, Absolute Neuts (auto) 7.9 H, Absolute Lymphs (auto) 0.75 L, Nucleated RBC % 0 Radiography Diagnostic Testing: Radiology Impression [place] Node 11/15/22 08:33 IMPRESSION: 1.1 mCi of technetium labeled sulfur colloid was injected subcutaneously in the periareolar region in 4 equal aliquots. Electronically Signed: Roney Méndez MD at 9:31 EDT , Physical Exam Narrative Right axilla and breast incision dressed clean dry and intact, IVY serosanguineous Const oriented x3 and no apparent distress Resp normal respiratory effort Cardio regular rate Assessment & Plan Assessment/Plan (1) History of lymph node dissection of right axilla: (2) S/P lumpectomy, right breast: (3) Invasive ductal carcinoma of breast: QUALIFIERS: Laterality: right Qualified Code(s): C50.911 - Malignant neoplasm of unspecified site of right female breast PLAN: Plan Patient tolerating diet well DC home after IVY teaching. Follow-up in 1 week in office call for appointment. Alannah Doe M.D. Pager: [phone] [facility] [address] [place] [address], [facility], [address] [place] [address] Office: [phone]
--- NOTE | 2022-11-16 07:36 | DCINST_ITS ---
Discharge Instructions Procedure Breast Surgery Diet Discharge Diet: No restrictions Activity Discharge Activity: May Not Drive (while taking narcotic pain meds.) and May Not Shower (With IVY in place) Lifting Restrictions: 10 pounds for 2 weeks on the right Dressing / Incision Call your doctor if your incision/area has: Continuous Slow Oozing, Sudden Increased Bleeding, Increased Pain/ Swelling and Increased Redness Call your doctor if you observe: Fever of 101 or Higher Suture Line Care: Avoid Pulling/Pushing Remove Dressing in: 1 day (bulky dressing) Additional Dressing/Incision Instructions:: Remove bulky dressing tomorrow. Continue to wear good supportive bra. Follow Up Care Please Follow Up With: Alannah Doe MD When: Please call [phone] for an appointment in 1 week or sooner if drains putting out 25 cc or less for couple of days. Bring IVY log to appointment Test Results: Test results from this visit will be discussed in further detail at your follow- up appointment, if applicable. Discharge Plan Admission Admit Date/Time: 11/15/22 16:50 Attending Provider: Alannah Doe Primary Care Provider: Dg Calixto Discharge Orders/Prescriptions Prescriptions: New tramadol 50 mg tablet 50 - 100 mg PO Q6H PRN (Reason: pain) 3 Days Qty: 14 0RF Continued levothyroxine 88 mcg capsule 88 mcg PO DAILY citalopram 20 mg tablet 20 mg PO DAILY atorvastatin 20 mg tablet 20 mg PO DAILY multivitamin [Daily Multi-Vitamin] Tablet 1 tab PO DAILY cholecalciferol (vitamin D3) [Vitamin D3] 25 mcg (1,000 unit) tablet 25 mcg PO DAILY Referrals / Follow Up: Dg Calixto MD [Primary Care Provider] - Disposition Disposition (needs filled in before D/C Order can be placed): Home, Self Care
[2022-11-16 08:23] VITALS: BP 112/55; PULSE 78; RESP 16; TEMP 36.6; O2SAT 99
[2022-11-16] MEDS: Multivitamins,Therapeutic Tablet 1 TABLET PO (08:24)
[2022-11-16] MEDS: Atorvastatin Calcium 20 MG Tablet PO (08:24)
[2022-11-16] MEDS: Citalopram 20 MG Tablet PO (08:25)
--- NOTE | 2022-11-16 09:51 | CASEMGMT ---
DEDE CM into pt room, pt states she feels comfortable going home. She states she was shown how to care for the IVY drain. She is aware that she needs to log the output and take this to her follow up appt. Pt denies any further homegoing needs.
== END 2022-11-16 11:23 | disposition home or self-care (01) ==
LOC: SDC 11-16 02:28 → MS3 11-16 02:28
PROVIDERS: Admitting Provider Surgery; PCP Family Medicine; Referring Provider Surgery; Visit Provider Surgery
PROC: 0HBV0ZZ Excision of Bilateral Breast, Open Approach (ICD-10-PCS; CPT 19302; principal; 2022-11-15 12:10)
DX: C50.911 Malignant neoplasm of unspecified site of right female breast (principal); E78.00 Pure hypercholesterolemia, unspecified; Z17.0 Estrogen receptor positive status [ER+]; E03.9 Hypothyroidism, unspecified; Z79.899 Other long term (current) drug therapy; Z79.890 Hormone replacement therapy; F32.A Depression, unspecified
CPT/HCPCS: 19302; 00400; 36415; 38792; 76098; 85025; 88305; 88307; 88331; 88332; 88341; 88342; 94668; 96361; 96374; 99221; A4648; A9541; J7030; J7120; A4216; G0378; J2405; J3490; Q9968

== ENCOUNTER → 2022-12-07 | Outpatient (CLI) | payer MEDICARE, SELFPAY ==
--- NOTE | 2022-12-07 08:00 | NM_ITS ---
CLINICAL: Female, 72 years old. STAGING BREAST CA, LEFT HIP AND PT STATES IT GIVES OUT ON HER -- RIGHT SHOULDER PAIN AFTER LIFTING SUITCASE WHOLE BODY NUCLEAR BONE SCAN TECHNIQUE: Following the IV administration of 26.6 mCi of Tc MDP, whole body bone imaging was performed with a gamma camera following a three hour delay. COMPARISON STUDIES : NM - None. CR - Not available for review at this time. CT - Not available for review at this time. MR - Not available for review at this time. US - Not available for review at this time. FINDINGS: Mild increased radiopharmaceutical uptake at the level of the left hip joint suggestive of a degenerative change. Mild levoscoliosis of the lumbar spine. NM/Bone Scan Whole Body IMPRESSION: No evidence of metastatic disease. Findings suggestive of osteoarthritis of the left hip joint. Electronically Signed: Roney Méndez MD at 14:57 EDT ,
== END | disposition home or self-care (01) ==
LOC: NM 07:43
PROVIDERS: PCP Family Medicine; Referring Provider Internal Medicine Medical Oncology; Visit Provider Internal Medicine Medical Oncology
DX: C50.811 Malignant neoplasm of overlapping sites of right female breast (principal)
CPT/HCPCS: 78306; A9503

== ENCOUNTER → 2022-12-12 | Outpatient (CLI) | payer MEDICARE, SELFPAY ==
--- NOTE | 2022-12-12 14:44 | CT_ITS ---
STUDY: CT CHEST, ABDOMEN T PELVIS WITH CONTRAST REASON FOR EXAM: Female, 72 years old. STAGING BREAST CA. POSITIVE LYMPH NODES RADIATION DOSAGE (If Supplied By Facility): CTDIvol = ( 11.46 ) mGy, DLP = ( 878.96 ) mGycm TECHNIQUE: Transaxial imaging was performed following intravenous administration of Oral and amp; IV Readi-CAT and amp; 100mL Isovue-300. Multiplanar coronal and sagittal images were reformatted. Individualized dose optimization techniques were used for this CT. COMPARISON: No relevant priors. FINDINGS: CHEST Surgical clips are seen in the deep portion of the right breast. Postoperative changes are seen in the right breast with overlying right breast skin thickening. Minimal scarring in the medial aspect of the right middle lobe as well as linear scarring in the lingular segment of the left upper lobe pulmonary nodules are seen. There is no demonstrated pleural abnormality. Normal heart and pericardium. Normal mediastinum. Normal hilar regions. Normal unenhanced pulmonary arteries. Mild atherosclerotic plaques at the level of the aortic arch. There is demineralization of the thoracic spine. ABDOMEN Normal liver. Tiny gallstones in a contracted gallbladder. Normal spleen. Normal pancreas. Normal bilateral adrenal glands. Normal right kidney. Normal left kidney. Normal visualized stomach. Normal small intestine. There are multiple colonic diverticula consistent with diverticulosis. The appendix is visualized and appears normal. Normal abdominal aorta. Normal inferior vena cava. Normal retroperitoneum. Normal abdominal wall. Minimal anterior listhesis of L4 on L5 most likely secondary to facet joint osteoarthritis. PELVIS Normal urinary bladder. Enlarged uterus. There is no pelvic fluid. There is no pelvic lymphadenopathy or mass lesion. Normal visualized pelvic arteries. CT/CT Chest, Abd, Pel w/Contrast IMPRESSION: Postoperative changes in the right breast. Mild lingular and right middle lobe scarring. Tiny gallstones in a contracted gallbladder. Electronically Signed: Roney Méndez MD at 12:52 EDT ,
[2022-12-12 14:59] LABS: Absolute Lymphocyte Count 1.75 X10^3/uL (0.83-4.51); Absolute Neutrophil Count 4.1 X10^3/uL (2.0-7.7); Basophil# 0.05 X10^3/uL; Basophil% 0.7 % (0-1); Eosinophil# 0.17 X10^3/uL; Eosinophils% 2.5 % (0-5); Hemoglobin 14.1 g/dL (12.0-15.0); Lymphocyte # 1.75 X10^3/ul (0.83-4.51); Lymphocyte % 25.9 % (19-41); Mean Corpuscular Hgb 31.1 pg (27.0-32.0); Mean Corpuscular Volume 97.1 fL (81-99); Mean Platelet Vol. 9.6 fl (6.2-12.0); Monocyte# 0.56 X10^3/uL; Monocyte% 8.3 % (0-10); NRBC Flagged by Analyzer 0 % (0-5); Neutrophil # 4.12 X10^3/uL (2.7-7.7); Platelet Count 307 K/mm3 (150-450); Red Blood Count 4.53 M/mm3 (4.2-5.4); White Blood Count 6.8 K/mm3 (4.4-11.0)
[2022-12-12 15:25] LABS: CREATININE FINGERSTICK < 0.9 mg/dL (0.55-1.02); EGFR FINGERSTICK > 60.0000 mL/min (>60)
[2022-12-12 15:44] LABS: ALB/GLOB Ratio 1.2 RATIO (0.9-2.4); AST(SGOT) 21 U/L (15-37); Alanine Aminotransfer ALT/SGPT 22 U/L (13-56); Albumin, Serum 3.6 g/dL (3.2-5.0); Alkaline Phosphatase 73 U/L (45-117); Anion Gap 4 (5-15); BUN 16 mg/dL (7-18); BUN/Creat Ratio 24.1 RATIO (10-20); Calcium,Total 8.7 mg/dL (8.5-10.1); Chloride 105 mmol/L (98-107); Creatinine, Serum 0.66 mg/dL (0.55-1.02); EST Glomerular Filtration Rate 93 mL/min (>60); Est Glom Filt Rate - Afr Amer 112 mL/min (>60); Globulin 3.1 g/dL (2.2-4.2); Glucose 88 mg/dL (74-106); LDH 201 U/L (84-246); Potassium 4.1 mmol/L (3.5-5.1); Protein, Total 6.7 g/dL (6.4-8.2); Sodium Level 138 mmol/L (136-145)
[2022-12-12 22:29] LABS: Xtra Tube EP Lab EXTRA TUBE
== END | disposition home or self-care (01) ==
PROVIDERS: PCP Family Medicine; Referring Provider Internal Medicine Medical Oncology; Visit Provider Internal Medicine Medical Oncology
DX: C50.811 Malignant neoplasm of overlapping sites of right female breast (principal)
CPT/HCPCS: 36415; 71260; 74177; 80053; 83615; 85025; Q9967

== ENCOUNTER 2023-01-02 11:00 | Outpatient (RCR) | payer MEDICARE, SELFPAY ==
--- NOTE | 2022-12-26 10:01 | HP.OTEVAL_ITS ---
Patient's Visit Information Visit Information Visit Information: CHRISTY GASPAR is a 72 year old F, referred to Occupational Therapy by Dr. Alannah Doe MD, with a diagnosis of breast cancer. Date of Evaluation: 12/25/22 Occupational Therapist: CAMI Mathew/Lizz, CHT Subjective Subjective: This 72 year old female was seen for OT eval with dx of right breast cancer. pt arrives with spouse Pt states mammogram on 09/25/2022 which showed abnormality in her right breast and left breast. Ultrasound of the breasts showed mass in the right breast. She underwent biopsy of the right breast nodule on 09/28/2022. Pathology showed invasive ductal carcinoma grade 1, ER positive greater than 95%, MA +65%, HER2 1-2+. She underwent right lumpectomy and axillary lymph node dissection on 11/15/2022. Pathology shows invasive ductal carcinoma tumor size 1.5 cm, grade 1, margins negative, lymph nodes 3 out of 21 positive, ER greater than 95% positive, MA 65% positive, HER2 negative by FISH. Pathologic staging pT1c pN1a. Prognostic stage IB. She has some pain in the right axilla and not moving right shoulder well. pt states she will initiates Radiation next week- they feel she has enough shoulder ROM to tolerate radiation. wants her to be ed. on lymphedema and receive a compression sleeve. Pain right UE: Current Pain Intensity: 2 Pain Intensity Range: 2 ROM Shoulder: right shoulder flexion 100 left WNL ROM Comments: pt demo with a reduction in right shoulder ROM - pt states she did have a decrease in right shoulder ROM prior due to possible RT injury . Lymphedema (Circumferential Measure) MCP: right 17.5cm left 17.5cm Wrist: right 14cm 14.5 Lower forearm: right 17cm left 17.5cm Largest forearm: right 20cm left 20.5cm Elbow: right 20cm left 21cm Largest humerus: right 25cm left 25.5cm Axcillary: right 29cm left 29.5cm Quick DASH-Disab of Arm,Shoulder& Hand Quick DASH Score: 27.9494 Goals Goal: Patient will demonstrate adequate knowledge of self-massage by the end of the second week.: Yes Goal: Patient will demonstrate adequate knowledge of skin care and precautions by the end of the first week.: Yes Goal: Patient will demonstrate adequate knowledge of therapeutic exercises by discharge.: Yes Goal: Patient will select an appropriate compression garment and demonstrate adequate knowledge of correct donning technique, care and wearing schedule by discharge.: Yes Goal: Patient will voice understanding of need to replace compression garment ev karen four to six months by discharge.: Yes Rehabilitation General Assessment: Following lumpectomy and lymph node removal ( 21) 3 positive and with upcoming radiation pt at high risk of developing lymphedema. Pt would benefit from skilled OT services 2-4 visits to ed. on signs/symptoms of lymphedema, skin care, precautions, lymph stim ex and self manual lymph massage. Today therapist ed. pt on use of compression sleeve and glove 20-30 mmHg for flights or if signs of lymphedema arise. pt and pts spouse demo understanding and agree to POC. Rehabilitation Potential: Good Anticipated Interventions Anticipated Interventions: Education re Diagnosis, Manual Lymph Drainage, Education re Life-long lymphedema Management, Education re Skin Care and Precautions, Education re Self Massage Techniques, Education re Correct Donning Tech,Care&Wearing Sched Comp Garments, Caregiver Training and Home Program Visit Plan Frequency: 1x/Week Duration: 4 Weeks TEXT: Thank you for the opportunity to evaluate your patient. For Medicare and Medicare HMO plans, please review the plan of care and approve it. It will need to be FAXED BACK to us at [phone] for Medicare purposes. Please let me know if there are questions or concerns regarding this plan of care. Physician Signature: _Date:
== END 2023-01-02 19:00 | disposition home or self-care (01) ==
LOC: OT 11:00
PROVIDERS: PCP Family Medicine; Visit Provider Surgery
DX: M25.619 Stiffness of unspecified shoulder, not elsewhere classified (principal); I89.0 Lymphedema, not elsewhere classified
CPT/HCPCS: 97110; 97140; 97166; 97530

== ENCOUNTER → 2023-01-18 | Outpatient (CLI) | payer MEDICARE, SELFPAY ==
[2023-01-18 18:18] LABS: Thyroid Stim Hormone (TSH) 1.12 uIU/mL (0.358-3.74)
== END | disposition home or self-care (01) ==
LOC: MFPLAB 13:59
PROVIDERS: PCP Family Medicine; Visit Provider Family Medicine
DX: E03.9 Hypothyroidism, unspecified (principal)
CPT/HCPCS: 36415; 84443

== ENCOUNTER → 2023-04-15 | Outpatient (CLI) | payer MEDICARE, SELFPAY ==
--- OUTSIDE RECORDS SUMMARY | 2023-04-15 11:21 | XMS RPT_ITS | CCD ---
Author Name Unknown Address [facility] [place] [address] Organization [facility] Care Team Providers Care Security Supervisor Name Role Phone [place] [place] Unavaila ARIEL Dickson Unavailable Unavailab le [facility] Unavailable Unavailable [facility] Unavailable Unavailable [facility] Unavailable Unavailable [facility] Unavailable Unavailable NO REFERRING Unavailable Unavailable VIVIANA LEE Attending Unavailable RODOLFO MONTAÑO MD Consulting Unavailable RODOLFO MONTAÑO Referring Unavailable VIVIANA LEE Admitting Unavailable VIVIANA LEE Primary Care Unavailable PROVIDER, UNKNOWN Consulting Unavailable RODOLFO MONTAÑO MD Consulting Unavailable YURY POWER DR Admitting Unavailable YURY POWER DR Primary Care Unavailable YURY POWER DR Attending Unavailable PROVIDER, UNKNOWN Consulting Unavailable Problems Active Problems Problem Classification Problem Date Documented Da te Episodic/Chronic Unclassified (1 source) Unknown / UNK(Unknown) Onset: 01-04-2017 Past or Other Problems Problem Classification Problem Date Documented Date Episodic/Chronic Unclassified (6 sources) Family history of malignant neoplasm of ovary; Translations: [Genetic susceptibility to other malignant neoplasm] Onset: 11-09-2016 Episodic Results Test Name Value Interpretation Reference Range Facil ity Encounters Encounter Date Encounter Type Care Provider Facility Start: 06-11-2022 ambulatory RODOLFO MONTAÑO [facility] Start: 06-04-2022 End: 06-04-2022 Emergency department patient visit VIVIANA LEE [facility] Start: 01-04-2017 End: 01-04-2017 [place] JENNI [place] [place] [facility] Start: 11-09-2016 End: 11-10-2016 Ambulatory [facility] Payers Date Payer Category Payer Unknown [id number] 1950 Unknown [id number] Medicare [id number] Unknown [id number] Summary Purpose Family History No Family History Records FoundNo Family History Records FoundNo Family History Records Found Advance Directives No Advanced Directives Records FoundNo Advanced Directives Records FoundNo Advanced Directives Records Found Additional Source Comments INFORMATION SOURCE (unrecogn ized section and content) DATE CREATED AUTHOR AUTHOR'S ORGANIZ ATION 09/03/2017 [facility] [employer] [facility] DATE CREATED AUTHOR AUTHOR'S ORGANIZ ATION 06/13/2022 [facility] FOR RECORDS PERTAINING TO PATIENTS WHO ARE OR HAVE BEEN ENROLLED IN A CHEMICAL DEPENDENCY/SUBSTANCEABUSE PROGRAM, SOME INFORMATION MAY BE OMITTED. This clinical summary was aggregated from multiple sources. Caution should be exercised in using it in the provision of clinical care. This summary normalizes information from multiple sources, and as a consequence, information in this document may materially change the coding, format and clinical context of patient data. In addition, data may be omitted in some cases. CLINICAL DECISIONS SHOULD BE BASED ON THE PRIMARY CLINICAL RECORDS. [facility] [facility] provides no warranty or guarantee of the accuracy or completeness of information in this document.
[2023-04-15 12:46] LABS: Anion Gap 4 (5-15); BUN 14 mg/dL (7-18); BUN/Creat Ratio 22.3 RATIO (10-20); Calcium,Total 8.3 mg/dL (8.5-10.1); Chloride 101 mmol/L (98-107); Cholesterol 193 mg/dL (200); Creatinine, Serum 0.63 mg/dL (0.55-1.02); EST Glomerular Filtration Rate 99 mL/min (>60); Est Glom Filt Rate - Afr Amer 120 mL/min (>60); Glucose 97 mg/dL (74-106); High Density Lipoprotein 89 mg/dL; Potassium 4.2 mmol/L (3.5-5.1); Sodium Level 134 mmol/L (136-145); Thyroid Stim Hormone (TSH) 2.27 uIU/mL (0.358-3.74); Triglycerides 84 mg/dL; Very Low Density Lipoprotein 17 mg/dL (5-40)
== END | disposition home or self-care (01) ==
LOC: MFPLAB 10:53
PROVIDERS: PCP Family Medicine; Visit Provider Family Medicine
DX: E03.9 Hypothyroidism, unspecified (principal); E78.5 Hyperlipidemia, unspecified; R03.0 Elevated blood-pressure reading, without diagnosis of hypertension; E55.9 Vitamin D deficiency, unspecified
CPT/HCPCS: 36415; 80048; 80061; 80069; 82306; 83735; 83970; 84443

== ENCOUNTER → 2023-10-14 | Outpatient (CLI) | payer MEDICARE, SELFPAY ==
--- NOTE | 2023-10-14 09:26 | BI_ITS ---
MAMMOGRAPHY - BILATERAL DIAGNOSTIC REASON FOR EXAM: Female, 73 years old. Status post right lumpectomy with radiation treatment. Tenderness at the operative site. PERTINENT HISTORY: Personal history of breast cancer. TECHNIQUE: Digital bilateral breast ro (3D mammographic acquisition) in the CC and MLO projections. 2-D mediolateral oblique (MLO) and craniocaudad (CC) views of both breasts were obtained. CAD: Full Field Digital Mammography with Computer Added Detection was performed. COMPARISON: Comparison is made with prior study dated September 25, 2022. FINDINGS: Breast Composition: The breasts are heterogeneously dense, which may obscure small masses. Since prior study, the patient is status post lumpectomy in the deep upper lateral aspect of the right breast. Surgical clips are seen in the right axilla. Postoperative scarring and deformity seen at the surgical site. No other significant abnormalities are identified. BI/DIAG MAMM W/CAD, BILAT IMPRESSION: Status post lumpectomy in the right breast as described with postoperative changes. One year follow-up recommended. (A) ASSESSMENT CATEGORY: BIRADS Category 2: Benign. A letter regarding these results will be sent to the patient by the facility within 30 days. Approximately 10% of breast cancers are not detected by mammography. A normal mammogram should not delay biopsy of a clinically suspicious abnormality. Electronically Signed: Roney Méndez MD at 10:26 EDT ,
== END | disposition home or self-care (01) ==
LOC: OPBI 09:25
PROVIDERS: PCP Family Medicine; Referring Provider Student in an Organized Health Care Education/Training Program; Visit Provider Student in an Organized Health Care Education/Training Program
DX: R92.8 Other abnormal and inconclusive findings on diagnostic imaging of breast (principal); Z85.3 Personal history of malignant neoplasm of breast
CPT/HCPCS: 77062; 77066; G0279

== ENCOUNTER → 2024-08-17 | Outpatient (CLI) | payer MEDICARE, SELFPAY ==
[2024-08-17 18:42] LABS: Anion Gap 12 (5-15); BUN 16 mg/dL (4-19); BUN/Creat Ratio 24.6 RATIO (10-20); Calcium,Total 8.7 mg/dL (7.6-11.0); Carbon Dioxide 24.5 mmol/L (21.0-32.0); Chloride 103 mmol/L (98-108); Cholesterol 182 mg/dL (<=200); Creatinine, Serum 0.66 mg/dL (0.70-1.20); EST Glomerular Filtration Rate 93 (>60); Free T3 1.9 pg/mL (2.18-3.98); Glucose 98 mg/dL (70-99); High Density Lipoprotein 87 mg/dL; Low Density Lipoprotein Calc. 69 mg/dL; Potassium 3.7 mmol/L (3.3-5.1); Sodium Level 139 mmol/L (133-145); Triglycerides 127 mg/dL; Very Low Density Lipoprotein 25 mg/dL (5-40); cholesterol:hdl ratio screen 2.09
== END | disposition home or self-care (01) ==
LOC: MFPLAB 14:14
PROVIDERS: PCP Family Medicine; Referring Provider Family Medicine; Visit Provider Family Medicine
DX: E03.9 Hypothyroidism, unspecified (principal); E78.5 Hyperlipidemia, unspecified
CPT/HCPCS: 36415; 80048; 80061; 84439; 84443; 84481

== ENCOUNTER 2024-09-16 11:44 | Outpatient (CLI) | payer MEDICARE, SELFPAY ==
[2024-09-16 15:24] LABS: Hematocrit 42.8 % (37-47); Hemoglobin 14.1 g/dL (12.0-15.0); Immature Granulocytes Count 0.020 X10^3/uL (0.0-0.0); Mean Corp Hgb Conc 32.9 g/dL (32-36); Mean Corpuscular Volume 98.2 fL (81-99); Mean Platelet Vol. 10.3 fl (6.2-12.0); NRBC Flagged by Analyzer 0 % (0-5); Platelet Count 223 K/mm3 (150-450); RBC Distribution Width CV 12.3 % (11.6-14.6); RBC Distribution Width SD 45.1 fl (35.1-43.9); Red Blood Count 4.36 M/mm3 (4.2-5.4); White Blood Count 5.7 K/mm3 (4.4-11.0)
[2024-09-16 16:55] LABS: AST(SGOT) 33 U/L (<=31); Alanine Aminotransfer ALT/SGPT 17 U/L (<=34); Albumin, Serum 4.4 g/dL (3.4-4.8); Alkaline Phosphatase 49 U/L (35-104); Anion Gap 11 (5-15); BUN 13 mg/dL (4-19); BUN/Creat Ratio 21.5 RATIO (10-20); Calcium,Total 8.9 mg/dL (7.6-11.0); Carbon Dioxide 26.9 mmol/L (21.0-32.0); Chloride 98 mmol/L (98-108); Ferritin 300 ng/mL (22-378); Globulin 2.2 g/dL (2.2-4.2); Glucose 93 mg/dL (70-99); Potassium 4.0 mmol/L (3.3-5.1)
== END 2024-09-16 23:59 | disposition home or self-care (01) ==
LOC: MTLAB 11:45
PROVIDERS: PCP Family Medicine; Referring Provider Physician Assistant; Visit Provider Physician Assistant
DX: L30.9 Dermatitis, unspecified (principal); R52 Pain, unspecified
CPT/HCPCS: 36415; 80053; 82728; 85025; 86038

== ENCOUNTER → 2024-10-14 | Outpatient (CLI) | payer MEDICARE, SELFPAY ==
--- NOTE | 2024-10-14 10:00 | BI_ITS ---
EXAM: SCRN MAMM (CAD)W/TANVIR BILAT DATE: 10/14/2024 CLINICAL HISTORY: F, Age 74 y/o , H/O BREAST CANCER, ANNUAL SCREENING TECHNIQUE: SCRN MAMM (CAD)W/TANVIR BILAT COMPARISON: Prior exam(s) dated 10/14/2023, 09/25/2022. FINDINGS: TISSUE DENSITY: There are scattered areas of fibroglandular density. Bilateral Breast Mammographic Findings: There is an asymmetry in the superior left breast at middle depth visualized on the MLO view. No significant masses, calcifications or other abnormalities are identified in the right breast. BI/SCRN MAMM (CAD)W/TANVIR BILAT IMPRESSION: The asymmetry in the superior left breast at middle depth requires further eval uation. Recommend diagnostic mammogram of the left breast and ultrasound on the day of diagnostic if indicated. OVERALL FINAL ASSESSMENT BI-RADS 0: INCOMPLETE - NEED ADDITIONAL IMAGING EVALUATION. RECOMMENDATION: Additional Views obtained/call backs A letter with findings and recommendations will be mailed to the patient. Reading Location: [id number]
== END | disposition home or self-care (01) ==
LOC: OPBI 09:49
PROVIDERS: PCP Family Medicine; Referring Provider Student in an Organized Health Care Education/Training Program; Visit Provider Student in an Organized Health Care Education/Training Program
DX: Z12.31 Encounter for screening mammogram for malignant neoplasm of breast (principal); Z85.3 Personal history of malignant neoplasm of breast
CPT/HCPCS: 77063; 77067

== ENCOUNTER → 2024-10-20 | Outpatient (CLI) | payer MEDICARE, SELFPAY ==
--- NOTE | 2024-10-20 13:12 | BI_ITS ---
EXAM: DIAG MAMM W/CAD, UNILAT; LT BRST UNILAT TANVIR ADD ON 10/20/2024 CLINICAL HISTORY: F, Age 74 y/o , ABN AUBREE; ABN MAMM TECHNIQUE: DIAG MAMM W/CAD, UNILAT; LT BRST UNILAT TANVIR ADD ON. COMPARISON: Prior exam(s) dated 10/14/2024, 10/14/2023, 09/25/2022. FINDINGS: TISSUE DENSITY: There are scattered areas of fibroglandular density. Unilateral Left Breast Mammographic Findings: Follow-up examination performed for the asymmetry seen in the left breast on examination of 10/14/2024. On the present examination, the asymmetry in the superior left breast at middle depth does not persist. This likely represents benign overlapping fibroglandular tissues. BI/DIAG MAMM W/CAD, UNILAT IMPRESSION: There is no mammographic evidence of malignancy. OVERALL FINAL ASSESSMENT BI-RADS 1: NEGATIVE RECOMMENDATION: Routine annual follow-up in 1 Year A letter with findings and recommendations will be mailed to the patient. Reading Location: [id number]
--- NOTE | 2024-10-20 13:12 | BI_ITS ---
EXAM: DIAG MAMM W/CAD, UNILAT; LT BRST UNILAT TANVIR ADD ON 10/20/2024 CLINICAL HISTORY: F, Age 74 y/o , ABN AUBREE; ABN MAMM TECHNIQUE: DIAG MAMM W/CAD, UNILAT; LT BRST UNILAT TANVIR ADD ON. COMPARISON: Prior exam(s) dated 10/14/2024, 10/14/2023, 09/25/2022. FINDINGS: TISSUE DENSITY: There are scattered areas of fibroglandular density. Unilateral Left Breast Mammographic Findings: Follow-up examination performed for the asymmetry seen in the left breast on examination of 10/14/2024. On the present examination, the asymmetry in the superior left breast at middle depth does not persist. This likely represents benign overlapping fibroglandular tissues. BI/Lt Brst Unilat Tanvir Add On IMPRESSION: There is no mammographic evidence of malignancy. OVERALL FINAL ASSESSMENT BI-RADS 1: NEGATIVE RECOMMENDATION: Routine annual follow-up in 1 Year A letter with findings and recommendations will be mailed to the patient. Reading Location: [id number]
== END | disposition home or self-care (01) ==
LOC: OPBI 13:08
PROVIDERS: PCP Family Medicine; Referring Provider Student in an Organized Health Care Education/Training Program; Visit Provider Student in an Organized Health Care Education/Training Program
DX: R92.8 Other abnormal and inconclusive findings on diagnostic imaging of breast (principal)
CPT/HCPCS: 77061; 77065; G0279

== ENCOUNTER 2024-10-28 13:12 | Outpatient (RCR) | payer MEDICARE, SELFPAY ==
--- NOTE | 2024-10-28 14:26 | HP.OTEVAL_ITS ---
Patient's Visit Information Visit Information Visit Information: CHRISTY GASPAR is a 74 year old F, referred to Occupational Therapy by Dr. Arben Hunter DO, with a diagnosis of RUE lymphedema. Date of Evaluation: 10/28/24 Occupational Therapist: Norma Tan Subjective Subjective: This 74 year old female arrives with dx of R arm lymphedema. pt did have lumpectomy nov 2022 with approx 20 lymph node removal followed by radiation for approx 15-16 weeks. Pt is R hand dominant. Pt has a compression sleeve she wears which she reports she only uses when flying. Main concern is she does not want swelling to get worse. Objective Objective/Observation: pt arrives with swelling of RUE present skin appears intact not dry or cracked ROM ROM Comments: BUE WFL however does feel tightness during shoulder flexion as well as ER Lymphedema (Circumferential Measure) MCP: R 17.5 cm L 17.5 cm Wrist: R 15 cm L 14.5 cm Lower forearm: R 19 cm L 14.5 cm Largest forearm: R 23 cm L 19.5 cm Elbow: R 22 cm L 22 cm Largest humerus: R 27 cm L 24 cm Axcillary: R 33 cm L 33 cm Sensation Sensation Comments: numbness along axillary region Goals Goal: Patient will demonstrate a 20% reduction in edema by discharge: Yes Goal: Patient will demonstrate adequate knowledge of self-massage by the end of the second week.: Yes Goal: Patient will demonstrate adequate knowledge of skin care and precautions by the end of the first week.: Yes Goal: Patient will demonstrate adequate knowledge of therapeutic exercises by discharge.: Yes Goal: Patient will select an appropriate compression garment and demonstrate adequate knowledge of correct donning technique, care and wearing schedule by discharge.: Yes Goal: Patient will voice understanding of need to replace compression garment every four to six months by discharge.: Yes Rehabilitation General Assessment: This 74 year old female arrives with dx of RUE lymphedema. Pt presents with swelling of R dominant UE. Pt would benefit from OT services 3- 4 session in 3 months for ed on compression garments, UE exercise, self massage as well as lymphedema precautions and skin care. Rehabilitation Potential: Good Anticipated Interventions Anticipated Interventions: Education re Diagnosis, Education re Life-long lymphedema Management, Education re Skin Care and Precautions, Education re Self Massage Techniques, Education re Correct Donning Tech,Care&Wearing Sched Comp Garments and Home Program Visit Plan Frequency: 3-4 sessions Duration: 3 Months General Plan: self massage UE exercise wear already owned compression garment during the day TEXT: Thank you for the opportunity to evaluate your patient. For Medicare and Medicare HMO plans, please review the plan of care and approve it. It will need to be FAXED BACK to us at [phone] for Medicare purposes. Please let me know if there are questions or concerns regarding this plan of care. Physician Signature: Date:
== END 2024-10-28 19:00 | disposition home or self-care (01) ==
LOC: OT 13:12
PROVIDERS: PCP Family Medicine; Referring Provider Student in an Organized Health Care Education/Training Program; Visit Provider Student in an Organized Health Care Education/Training Program
DX: M79.89 Other specified soft tissue disorders (principal)
CPT/HCPCS: 97165; 97530